=== PATIENT | female | born 1970 | race Caucasian/White ===

== ENCOUNTER → 2018-07-29 10:50 | Outpatient (CLI) | payer OTHER, SELFPAY ==
[2018-07-29 11:58] LABS: Add Manual Diff / Slide Review NO; Basophils Percent Auto 0.2 % (0-2); Eosinophils Percent Auto 0.6 % (2-4); Hemoglobin 12.8 g/dL (12.0-16.0); Lymphocytes Percent Auto 24.4 % (25-40); Mean Corpuscular HGB Conc 33.8 % (30-36); Mean Corpuscular Hemoglobin 30.6 PG (26-34); Mean Corpuscular Volume 90.5 fL (80-100); Monocytes Percent Auto 10.1 % (3-14); Neutrophils Absolute Auto 3700 /uL (3000-5900); Neutrophils Percent Auto 64.7 % (50-75); Platelet Count 247 X10^3/uL (150-400); Red Cell Distribution Width 12.5 % (11.6-14.8); White Blood Cell Count 5.8 X10^3/uL (4.5-11.0)
[2018-07-29 12:00] LABS: Alanine Aminotransferase 36 IU/L (9-52); Albumin 4.5 g/dL (3.5-5.0); Albumin Globulin Ratio 1.6 (1.0-2.8); Alkaline Phosphatase 57 U/L (38-126); Aspartate Aminotransferase 27 IU/L (14-36); Bilirubin Total 0.3 mg/dL (0.2-1.3); Blood Urea Nitrogen 11 mg/dL (7-17); Calcium 9.6 mg/dL (8.4-10.2); Carbon Dioxide 29 mmol/L (22-32); Chloride 102 mmol/L (98-107); Estimated Glomerular Filt Rate > 60.0 mL/min (>60); Globulin 2.8 g/dL (1.7-4.1); Glucose 87 mg/dL (70-100); HEMOLYSIS < 15 (0-50); Potassium 4.5 mmol/L (3.4-5.1); Sodium 142 mmol/L (137-145); Total Protein 7.3 g/dL (6.3-8.2)
[2018-07-29 12:29] LABS: TSH w/ Reflex to FT4 1.01 uIU/mL (0.47-4.68)
== END ==
PROVIDERS: Visit Provider Specialist
DX: N93.9 Abnormal uterine and vaginal bleeding, unspecified (principal); R42 Dizziness and giddiness; R53.83 Other fatigue
CPT/HCPCS: 36415; 80053; 84443; 85025

== ENCOUNTER 2019-07-06 10:35 | Observation (INO) | payer OTHER, SELFPAY ==
[2019-06-29 12:03] VITALS: BMI 22.8
[2019-07-05] VITALS (14 sets, daily range): BP systolic 77–126; BP diastolic 42–80; PULSE 49–74; RESP 11–26; TEMP 36.4–36.8; O2SAT 96–100; BMI 22.5
--- NOTE | 2019-07-05 | PATH_ITS ---
[facility] Accession Number: [id number] . 01 Material submitted: . cervix - CERVICAL FIBROID . 02 Diagnosis: Cervical Fibroid: Benign leiomyoma (2.0 cm in greatest dimension). Negative for cytologic atypia, significantly increased mitotic activity, or regions of necrosis. MRV 07/07/2019 1414 Local . 02 Electronically signed: . Irasema Carter MD, Pathologist NPI- [id number] . 01 Gross description: . CERVICAL FIBROID: Received in formalin is 1 fragment of burns soft tissue measuring 2.0 x 2.0 x 2.0 cm. Specimen is sectioned and submitted in its entirety in 4 cassettes. /[facility] 07/05/2019 2358 Local . 02 Pathologist provided ICD-10: N81.6, N81.0, D25.0, N92.1 . 02 CPT . 955966 Performed at: 01 [facility] [address], [place], [place] [id number] MD Los Cooney MD Phone: [phone] Performed at: 02 [facility] [address] [place], [place] [id number] MD Yahaira Holt MD Phone: [phone]
[2019-07-05] MEDS: LACTATED RINGERS 1,000 ML 100 ML IV ×2 (08:45→12:58)
--- NOTE | 2019-07-05 08:45 | PM.PREOP ---
Pre-operative Note Interval Note History & Physical reviewed/Exam performed by Physician: Yes Changes to H&P: No
[2019-07-05] MEDS: CEFAZOLIN 2 GM/100 ML FROZ.PIGGY IV (09:19)
--- NOTE | 2019-07-05 09:36 | SUR.OPER ---
Lithotomy on padded OR bed, head on pillow, arms secured on padded arm boards at <90 degrees abduction. Legs secured in padded yellow fins stirrups.
[2019-07-05] MEDS: BUPIVACAINE 0.5% W/ EPI (PF) VIAL 30 ML INJ (09:43)
--- NOTE | 2019-07-05 11:13 | PM.OP.1 ---
Operative Date/Time/Diagnoses Date of procedure: 07/05/19 Time of procedure: 11:13 Pre-op diagnosis: Symptomatic uterovaginal prolapse Post-op diagnosis: other (Same with cervical fibroid) Procedure & Clinicians Procedure: Anterior and posterior repair with bilateral sacrospinous ligament fixation and removal of cervical fibroid Same procedure as scheduled: No (Addition of removal of cervical fibroid) Indications: Symptomatic uterovaginal prolapse Surgeon: Lin Dorman Click Yes if Unassisted: Yes Anesthesia Type: General Operative Notes Findings: Uterovaginal prolapse with 2 cm cervical fibroid Closure Type: primary Specimen(s): other (Cervical fibroid) Applied: catheter (Ragland) and other (Vaginal packing) Estimated Blood Loss (mL): 25 Blood products transfused: none Procedure in detail: Patient was brought to the operating room where she was placed in yellowfin stirrups and prepped and draped in the usual sterile fashion. A 20 point check system was reviewed prior to the beginning of the case. Pulsatile stockings were in place and functional throughout the case. Warming was in place. 2 g of Ancef were in prior to beginning of the case. A dilute solution of 1% lidocaine with epinephrine was injected over this cystocele. An incision was made over the cystocele and the incision dissected laterally. A pursestring suture was used to decrease the caliber of the cystocele with 2-0 Vicryl suture. Plicating sutures were made over the cystocele with 0 Vicryl suture. A small amount of the vaginal excessive tissue was removed with scissors. The incision was closed with 2-0 Vicryl suture. The area over the rectocele was injected with a dilute solution of 1% lidocaine with epinephrine. An incision was made over the rectocele and enterocele with the scalpel. The dissection was undertaken laterally. 0 Prolene suture with the Capio passer was placed through the uterosacral ligament on the right side and sutured to the underside of the cervix. A 2nd suture was placed. After tightening down the sutures decision was made that a sacrospinous ligament suture would be placed also on the left side and sutured to the underside of the cervix. A finger was placed in the rectum to be sure there were no sutures placed through the rectal mucosa. The uterosacral sutures were tightened down. 0 Vicryl suture was used to plicate over the rectocele. With a 2nd layer of 2 0 Vicryl suture plicated and the vaginal incision was closed with 2-0 Vicryl suture. Vaginal packing was placed in the vagina and the Ragland was placed. Counts of instruments and sponges were correct. The patient went to recovery room in good condition. Complications: none Post-operative Condition: stable Disposition: observation Plan for aftercare: Remove packing and Ragland in a.m. and home after postvoid residual
--- NOTE | 2019-07-05 11:20 | PM.OP.1 ---
Operative Date/Time/Diagnoses Date of procedure: 07/05/19 Time of procedure: 11:20 Pre-op diagnosis: Symptomatic uterovaginal prolapse Post-op diagnosis: other (Cervical fibroid) Procedure & Clinicians Procedure: Anterior and posterior repair with sacrospinous ligament fixation in removal of cervical fibroid Same procedure as scheduled: No (Addition of removal of cervical fibroid) Indications: Symptomatic partial uterovaginal prolapse with cervical fibroid Surgeon: Lin Dorman Click Yes if Unassisted: Yes Anesthesia Type: General Operative Notes Findings: Partial uterovaginal prolapse with 2 cm cervical fibroid Closure Type: primary Specimen(s): other (Cervical fibroid) Applied: catheter and other (Vaginal Pap) Estimated Blood Loss (mL): 25 Blood products transfused: none Procedure in detail: Patient was brought to the operating room where she was placed in yellowfin stirrups and prepped and draped in the usual sterile fashion. A 20 point check system was reviewed prior to the beginning of the case. Pulsatile stockings were in place and functional throughout the case. Warming was in place. 2 g of Ancef were in prior to beginning of the case. A Ragland catheter was placed. A dilute solution of 1% lidocaine with epinephrine was injected over this cystocele. An incision was made over the cystocele and the incision dissected laterally. A pursestring suture was used to decrease the caliber of the cystocele with 2-0 Vicryl suture. Plicating sutures were made over the cystocele. A small amount of the vaginal excessive tissue was removed with scissors. The incision was closed with 2-0 Vicryl suture. The area over the rectocele was injected with a dilute solution of 1% lidocaine with epinephrine. An incision was made over the rectocele and enterocele with the scalpel. The dissection was undertaken laterally. 2 0 Prolene sutures with the Capio passer was placed through the uterosacral ligament on the right side and sutured to the underside of the vaginal cuff. Same procedure performed on the left side. A finger was placed in the rectum to be sure there were no sutures placed through the rectal mucosa. An incision was made on the is cervix over the fibroid. The fibroid was dissected out from the cervix and the defect repaired with 2 0 Vicryl suture. The uterosacral sutures were tightened down. 0 Vicryl suture was used to plicate over the rectocele and enterocele. A 2nd layer of plication sutures with 2 0 Vicryl suture. The vaginal incision was closed with 2-0 Vicryl suture. Vaginal packing was placed in the vagina and the Ragland left in place. Counts of instruments and sponges were correct. The patient went to recovery room in good condition. Complications: none Post-operative Condition: stable Disposition: observation Plan for aftercare: Home tomorrow after removal of vaginal packing and Ragland catheter with postvoid residual check
--- NOTE | 2019-07-05 11:44 | SUR.PHASEI ---
Report called to Steve
--- NOTE | 2019-07-05 11:56 | SUR.PHASEI ---
Patient transferred to the floor with belongings bag. VS stable. Per-pad unchanged, vaginal packing in place. IV saline locked. Report given to Steve.
--- NOTE | 2019-07-05 11:57 | SUR.PHASEI ---
Addendum: baires patent with scant amount of clear, yellow fluid.
--- NOTE | 2019-07-05 17:36 | PC.NURSE ---
Addendum entered by Michelle Landaverde R.N. 07/05/19 20:52: Reporting some pressure to pelvic region, rates as 1 or 2 on pain scale. Teaching explained about what medications are ordered as prn by surgeon. She requested Toradol which I gave her. Toradol given diluted in 2 ml of NS. She reported some pain with IV med, teaching explained about how Toradol can be harsh on small veins. After IVF infusing she reported pain at IV insertion site is gone. I made up window bench with linens & pillows for her to room in with her. She denies other needs or concerns at this time. Fall precautions in place, aware to call staff for needs. Addendum entered by Michelle Landaverde R.N. 07/05/19 19:23: Patient transferred back to bed after she ate dinner. Denies pain. BP 95/58, she denies dizziness or nausea. Family visiting at bedside. Original Note: Evening note: Irasema dozing until 1630 when she asked me can I move? VS stable, BP 91/57 but appears baseline for her. Sat her up at side of bed, she denied dizziness. Stood at bedside, still denied dizziness, then transferred to recliner. Old dry spots of sero-sang on bed linen underneath her, full linen change done. Ragland patent with clear dilute urine output. LR infusing as ordered, IV patent, reinforced with tape. Ate meal while sitting in recliner, denies nausea, PASTEURIZER HELPER helped her call in her breakfast order. Supporting spouse at bedside. Pt reminded to call staff for any needs/concerns.
[2019-07-05] MEDS: DOCUSATE 250 MG CAPSULE PO (20:27)
[2019-07-05] MEDS: PARoxetine 10 MG TABLET 5 MG PO (20:27)
[2019-07-05] MEDS: KETOROLAC 30 MG/ML VIAL IV (20:36)
[2019-07-06 01:40] VITALS: BP 93/52; PULSE 62; RESP 16; TEMP 36.9; O2SAT 99
--- NOTE | 2019-07-06 01:58 | PC.NURSE ---
Addendum entered by Ariella Elizalde R.N. 07/06/19 06:13: States she slept at intervals. Packing removed and catheter d'cd at 0600 as per order. Patient instructed in sx/prevention of UTI. Verbalizes that she needs to call for assistance when needing to get up to urinate. States 3/10 pressure in rectal area; medicated with Toradol. Original Note: Patient is alert and oriented. Breath sounds CTA with RA sat of 99%. HRR. Low BP of 93/52 which is consistent with earlier readings; patient is asymptomatic and believes SBP is 90's at baseline. Denies nausea. BT present and is passing flatus. Indwelling catheter is patent; urine is clear, pale yellow. Able to move self in bed. Reported by evening shift that patient is up with walker and standby assist. Peripad with no drainage at this time. Wearing bilateral calf SCD's. Denies pain. Fall risk score is moderate; patient calls for assistance appropriately. Spouse rooming in.
[2019-07-06] MEDS: KETOROLAC 30 MG/ML VIAL IV ×2 (06:06→11:37)
[2019-07-06] MEDS: SODIUM CHLORIDE 0.9% FLUSH 10 ML IV ×2 (06:07→11:49)
[2019-07-06 06:16] VITALS: BP 93/50; PULSE 59; RESP 17; TEMP 36.7; O2SAT 99
[2019-07-06 06:59] LABS: Add Manual Diff / Slide Review NO; Basophils Absolute Auto 0 /uL (0-100); Basophils Percent Auto 0.1 % (0-2); Eosinophils Absolute Auto 0 /uL (0-450); Hematocrit 33.2 % (36-46); Hemoglobin 11.3 g/dL (12.0-16.0); Lymphocytes Absolute Auto 1500 /uL (1100-4500); Lymphocytes Percent Auto 11.4 % (25-40); Mean Corpuscular HGB Conc 34.1 % (30-36); Mean Corpuscular Volume 90.8 fL (80-100); Monocytes Absolute Auto 1000 /uL (0-900); Monocytes Percent Auto 8.1 % (3-14); Neutrophils Absolute Auto 10300 /uL (1500-7000); Neutrophils Percent Auto 80.4 % (50-75); Platelet Count 222 X10^3/uL (150-400); Red Blood Cell Count 3.66 X10^6/uL (4.0-5.2); Red Cell Distribution Width 12.7 % (11.6-14.8); White Blood Cell Count 12.8 X10^3/uL (4.5-11.0)
[2019-07-06 07:10] VITALS: BP 106/67; PULSE 57; RESP 16; TEMP 36.7; O2SAT 99
--- NOTE | 2019-07-06 09:07 | PM.DS.1 ---
History of Present Illness History of Present Illness Date Patient Seen: 07/06/19 Time Patient Seen: 09:07 Chief complaint: [id number] A&P REPAIR W/COLPOPEXY *OPB* Narrative: Patient is status post anterior and posterior repair with sacrospinous ligament fixation and removal of cervical fibroid. She denies any pain. She is able to urinate without difficulty. She is ambulatory and tolerating regular diet. Discharge Providers Provider Discharge Date: 07/06/19 Discharge provider: Lin Dorman MD Summary Hospital Course Discharge Diagnosis: Symptomatic uterovaginal prolapse and cervical fibroid Hospital Course: Patient is status post anterior and posterior repair with sacrospinous ligament fixation doing well. Status at Discharge Cognitive/behavioral status at discharge: oriented Functional status at discharge: independent ambulation Overall status at discharge: patient is progressing back to baseline Time Spent with Patient Time spent: Less than 30 minutes Exam Vital Signs (past 8 hours): - 07/06/19 01:40 07/06/19 06:16 07/06/19 07:10 Temperature 98.4 F 98.1 F 98.1 F Pulse Rate 62 59 L 57 L Respiratory Rate 16 17 16 Blood Pressure 93/52 L 93/50 L 106/67 Pulse Oximetry 99 99 99 Oxygen Delivery Method Room Air Oxygen Flow Rate 0 Narrative Exam Narrative: Abdomen is soft, nontender. Mild vaginal discharge. Extremities without edema and nontender. Objective Labs Result Diagrams: 07/06/19 06:36 Labs: Laboratory Results - last 24 hr 07/06/19 06:36 WBC 12.8 H RBC 3.66 L Hgb 11.3 L Hct 33.2 L MCV 90.8 MCH 31.0 MCHC 34.1 RDW 12.7 Plt Count 222 Neut % (Auto) 80.4 H Lymph % (Auto) 11.4 L [place] % (Auto) 8.1 Eos % (Auto) 0.0 L Baso % (Auto) 0.1 Neut # (Auto) 35021 H Lymph # (Auto) 1500 [place] # (Auto) 1000 H Eos # (Auto) 0 Baso # (Auto) 0 Discharge Plan Discharge Plan Patient Disposition: Home Discharge Med Rec/Prescriptions Prescriptions: Continued paroxetine HCl [Paxil] 10 mg tablet 5 mg PO DAILY Qty: 45 RF: 1 calcium carbonate [Calcium 600] 600 mg calcium (1,500 mg) Tablet 1,200 mg PO DAILY RF: 0 doxylamine succinate 25 mg Tablet 12.5 mg PO BEDTIME PRN (Reason: Sleep) RF: 0 glucosamine HCl 1,500 mg Tablet 1,500 mg PO DAILY RF: 0 cholecalciferol (vitamin D3) [Vitamin D3] 2,000 unit Capsule 2,000 unit PO DAILY RF: 0 Follow up/Referrals: Lin Dorman MD [Physician] - 2 Weeks Discharge Orders: Discharge (Order); Ordered 07/06/19 Ordered By: Lin Dorman Provider Discharge Instructions Diet: Regular Activity: Nothing in vagina or lifting over 20 lb for 6 weeks Skin/Wound/Dressing Care Report to your healthcare provider any signs of infection, such as:: chills, fever and increased pain Visit Report/Discharge Packet Stand Alone Forms: Surgery Discharge Discharge Data Attending Provider: Lin Dorman Quality VTE Deep Vein Thrombosis/Pulmonary Embolism Present on Admission: No
--- NOTE | 2019-07-06 09:24 | CM.DANOTE ---
DCP: Case received, EMR reviewed and met with patient. Introduced self and role. , , at bedside. Was able to meet with patient to obtain baseline history information. DCP assessment/template completed with information currently available. Patientis a 48 year old female who admitted yesterday morning to the care of the OB team. PCP: Dr. Garcia. Payer: [facility]. Patient came to the hospital for a surgical procedure. She had surgery secondary to uterovaginal prolapse, cervical fibroid. Met with patient in her room. Alert and oriented, independent, at bedside. She has discharge orders for today. P: Patient is to be discharged home today. Tory Casiano RN/Barrel Polisher
[2019-07-06 10:24] VITALS: BP 88/51; PULSE 45; RESP 17; TEMP 36.6; O2SAT 99
[2019-07-06 10:39] VITALS: BP 89/53
[2019-07-06 10:53] VITALS: BP 96/60
--- NOTE | 2019-07-06 10:59 | PC.NURSE ---
Addendum entered by Steve Hodge R.N. 07/06/19 13:31: patient tolerated shower well. reviewed all dc home instructions w/ patient and spouse. confirmed understanding. taken to vehicle by wc with all belongings and paperwork w/ food stand manager escort in no s/sx's of distress. Addendum entered by Steve Hodge R.N. 07/06/19 12:55: ambulated in halls with walker and food stand manager standby assist, no further lightheadedness. allowed patient to take shower sitting on shower chair. instructed not to allow water to be too warm. spouse assisting her. instructed on pull cord for any adverse symptoms. they confirm understanding. Original Note: PATIENT REPORTED LIGHTHEADEDNESS AND A FLUSHING SENSATION DOWN HER BODY AFTER STANDING TO GO TO BR AND SITTING ON SIDE OF BED. SBP 88. AFTER LAYING BACK DOWN AND SX RESOLVED. ENCOURAGED PATIENT TO CONTINUE TO LAY FLAT AND WE WILL DELAY SHOWER, AND RE-ATTEMPT ACTIVITY IN ABOUT 1HR. VSS. REPORTS SLIGHT PAIN DURING URINATION, BUT OTHERWISE DENIES PAIN.
[2019-07-06] MEDS: DOCUSATE 250 MG CAPSULE PO (11:35)
== END 2019-07-06 13:32 | disposition home or self-care (01) ==
LOC: OR 11:56
PROVIDERS: Admitting Provider Specialist; Visit Provider Specialist
PROC: (CPT 57282; principal; 2019-07-05 09:45)
DX: N81.2 Incomplete uterovaginal prolapse (principal); D25.0 Submucous leiomyoma of uterus; N81.6 Rectocele
CPT/HCPCS: 57282; 57260; 36415; 85025; G0378; J0690; J1100; J1885; J2405; J2704